=== PATIENT | male | born 1970 | race Caucasian/White ===

== ENCOUNTER → 2023-07-28 | Outpatient (CLI) | payer BC ==
--- NOTE | 2023-07-30 17:05 | MR ---
EXAMINATION TYPE: MR pancreas wo/w con DATE OF EXAM: 07/28/2023 8:06 AM CLINICAL INDICATION:Male, 53 years old with history of K86.9 pancreatic lesion; PHH, Chronic abdomen pain, abn imaging COMPARISON: None TECHNIQUE: Multiplanar multi-sequence imaging was performed without contrast. Post contrast imaging was performed. Post IV contrast subtraction images were also submitted for review. IV Contrast: 7.5 cc Gadobutrol FINDINGS: LOWER CHEST: No gross irregularity. ABDOMEN Liver: No evidence for hepatic steatosis or cirrhosis. Signal dropout on chemical shift in phase imag ing. Gallbladder and Bile ducts: No evidence for ductal dilation, or biliary stricture or evidence of chol edocholithiasis. The gallbladder is within normal limits. Pancreas: No ductal dilation. No evidence for solid mass. Spleen: Normal for size. Signal dropout on chemical shift in phase imaging. Adrenal glands: Unremarkable. Kidneys: No evidence for obstructive uropathy. No suspicious renal masses. Stomach and Bowel: No evidence for bowel wall thickening or evidence for obstruction. Retroperitoneum/Peritoneum: No evidence of pneumoperitoneum or free fluid. Vasculature: No aortic aneurysm. Musculoskeletal: The osseous structures appear intact. Lymph Nodes: No gross evidence for lymphadenopathy. Abdominal wall: Unremarkable. IMPRESSION: 1. No pancreatic lesion identified. No cystic structures dilated duct or solid mass visualized. If p riors at outside institution made available a comparison can be made with addendum enhancing the clin ical question. 2. Evidence of iron deposition within the liver and spleen.
== END | disposition home or self-care (01) ==
LOC: RADMRIMAIN 06:59
PROVIDERS: ATTEND Family Medicine
DX: K86.9 Disease of pancreas, unspecified (principal); R10.9 Unspecified abdominal pain; R93.5 Abnormal findings on diagnostic imaging of other abdominal regions, including retroperitoneum
CPT/HCPCS: 74183; A9585

== ENCOUNTER → 2023-08-07 | Outpatient (CLI) | payer BC ==
[2023-08-07 15:19] LABS: % Iron Saturation 37.35 (15.00-50.00); ALT 26 U/L (10-49); AST 22 U/L (14-35); Albumin 4.4 g/dL (3.8-4.9); Alkaline Phosphatase 54 U/L (41-126); BUN/Creat Ratio 13.78 Ratio (12.00-20.00); Blood Urea Nitrogen 12.4 mg/dL (9.0-27.0); Calcium 9.6 mg/dL (8.7-10.3); Carbon Dioxide 24.1 mmol/L (21.6-31.8); Chloride 102 mmol/L (96-109); Glucose 117 mg/dL (70-110); Iron 124 UG/DL (65-175); Potassium 4.5 mmol/L (3.5-5.5); Sodium 138 mmol/L (135-145); Total Bilirubin 0.5 mg/dL (0.3-1.2); Total Iron Binding Capacity 332 UG/DL (228-460); Total Protein 6.4 g/dL (6.2-8.2)
== END | disposition home or self-care (01) ==
LOC: LABWHC1 09:00
PROVIDERS: ATTEND Nurse Practitioner Family
DX: R93.89 Abnormal findings on diagnostic imaging of other specified body structures (principal); F10.10 Alcohol abuse, uncomplicated
CPT/HCPCS: 36415; 80053; 81256; 81596; 82728; 83540; 83550

== ENCOUNTER → 2023-08-27 | Outpatient (CLI) | payer BC ==
--- NOTE | 2023-08-27 12:42 | FL ---
EXAMINATION TYPE: FL UGI air w small bowel DATE OF EXAM: 08/27/2023 COMPARISON: NONE HISTORY: 53-year-old male R10.9 UNSPECIFIED ABDOMINAL PAIN. Fluctuating weight. TECHNIQUE: A double contrast UGI study is performed with small bowel follow through. A total of 2 m inutes 43 seconds of fluoroscopic time was utilized during procedure and 133 images obtained. Total dose area product (DAP) in uGy*m?, mGy*cm? (or similar): 125. FINDINGS: [employer] image of the abdomen shows no gross abnormality. There is scattered moderate stool t hroughout the colon. The patient swallowed oral contrast without difficulty or delay. The thoracic esophagus shows normal course, caliber, and motility. No mucosal lesion or abnormal filling defect is encountered. There is a small sliding hiatal hernia with moderate reflux during Valsalva and turning maneuver. The stomach shows normal distensibility and peristalsis. There is mild fold thickening at the distal gastric body and antrum. No evidence of any mass or ulcer disease. The duodenal bulb and sweep are unremarkable. The small bowel study shows normal transit to the colon in 1 hour. There are normal mucosal fold pattern throughout the small bowel. There is no evidence of any strict ure or filling defect noted. The terminal ileum is unremarkable. IMPRESSION: 1. Small sliding hiatal hernia with moderate GERD. 2. Mild fold thickening at the distal gastric body and gastric antrum. Correlate for any symptoms of a mild gastritis. 3. Small bowel transit time at the faster end of the normal range. No specific abnormality otherwise seen.
== END | disposition home or self-care (01) ==
LOC: RADFLMAIN 07:59
PROVIDERS: ATTEND Internal Medicine Gastroenterology
DX: K21.9 Gastro-esophageal reflux disease without esophagitis (principal); K44.9 Diaphragmatic hernia without obstruction or gangrene
CPT/HCPCS: 74240; 74248

== ENCOUNTER → 2023-11-26 | Outpatient (CLI) | payer BC ==
--- NOTE | 2023-11-26 09:09 | XR ---
EXAMINATION TYPE: XR abdomen 2V DATE OF EXAM: 11/26/2023 COMPARISON: NONE HISTORY: Abdominal pain TECHNIQUE: One view abdominal series FINDINGS: The osseous structures are intact. The bowel gas pattern is nonspecific. Lung bases are clear. Mode rate to severe retained stool burden. Calcifications in the pelvis nonspecific but likely vascular. IMPRESSION: 1. Nonspecific abdomen. No evidence of obstruction. Correlate for constipation.
== END | disposition home or self-care (01) ==
LOC: RADXRMAIN 08:38
PROVIDERS: ATTEND Internal Medicine Gastroenterology
DX: K59.00 Constipation, unspecified (principal)
CPT/HCPCS: 74019

== ENCOUNTER → 2024-02-24 | Outpatient (CLI) | payer BC ==
--- NOTE | 2024-02-24 10:10 | CT ---
EXAMINATION TYPE: CT sinus wo con DATE OF EXAM: 02/24/2024 COMPARISON: None HISTORY: sinusitis CT DLP: [address] of the paranasal sinuses was performed in the axial and coronal planes. Bone and soft tissue settings are submitted. The paranasal sinuses demonstrate normal development. There is evidence of at least moderate chronic pansinusitis. Postoperative changes of medial maxillar y antrectomy and partial ethmoidectomy noted. The nasal septum is midline. No bony destructive changes are seen within the field of view. IMPRESSION: There is evidence of at least moderate chronic pansinusitis. Postoperative changes of medial maxillar y antrectomy and partial ethmoidectomy noted. [facility], , 02/24/2024 10:07 AM
== END | disposition home or self-care (01) ==
LOC: RADCTMAIN 09:38
PROVIDERS: ATTEND Otolaryngology
DX: J32.4 Chronic pansinusitis (principal)
CPT/HCPCS: 70486

== ENCOUNTER → 2024-05-15 | Outpatient (CLI) | payer OTHER ==
--- NOTE | 2024-05-15 12:59 | MR ---
EXAMINATION TYPE: MR cervical spine wo con DATE OF EXAM: 05/15/2024 8:55 AM COMPARISON: None. CLINICAL INDICATION: Male, 53 years old with history of M54.2 Cervicalgia, Chronic neck pain, BUE num bness, headaches, prior surgery. TECHNIQUE: Multiplanar multiecho imaging on a 3.0 Maria Antonia magnet is performed through the cervical spin e. IV Contrast: mL (None, if empty) FINDINGS: The craniovertebral junction is normal. Vertebral body alignment is normal. C7-T1: No focal disc herniation or significant disc bulge is evident. No spinal canal stenosis or n eural foraminal stenosis is present. C6-7: Disc spacers present at C6-7. No spinal canal stenosis is present. Mild foraminal narrowing is present bilaterally. C5-6: Broad-based disc bulge is present with mild anterior thecal sac compression. No cord contact is evident. No AP spinal canal stenosis evident. Neural foramen are patent.. C4-5: There is a small central protrusion with anterior thecal sac compression. No cord contact or sp inal canal stenosis. Neural foramen are patent. C3-4: Mild disc bulge is present centrally with anterior thecal sac compression. This comes in close approximation with the spinal cord. No cord contact or cord deformity is evident. No AP spinal canal stenosis. Neural foramen are patent.. C2-3: No focal disc herniation or significant disc bulge is evident. No spinal canal stenosis or terry ral foraminal stenosis is present. IMPRESSION: 1. Mild disc bulging present at C5-6, C4-5, C3-4 discussed above. No AP spinal canal stenosis or cord contact evident. [facility], , 05/15/2024 12:57 PM
== END | disposition home or self-care (01) ==
LOC: RADMRIMAIN 08:16
PROVIDERS: ATTEND Family Medicine
DX: M50.322 Other cervical disc degeneration at C5-C6 level (principal); R20.2 Paresthesia of skin
CPT/HCPCS: 72141

== ENCOUNTER 2024-08-16 12:25 | Inpatient (IN) | payer BC ==
--- NOTE | 2024-08-16 12:51 | ED ---
Psych HPI - General Chief Complaint: Psychiatric Symptoms Stated Complaint: Psych evaluation Time Seen by Provider: 08/16/24 12:32 Source: patient, RN notes reviewed Mode of arrival: ambulatory Limitations: no limitations - History of Present Illness Initial Comments: 54-year-old male presents emergency department chief complaint of depression. Patient states that worsening depression last several months states that it worsened after break-up of his fiance and now recently found out that he is losing his house. Patient states he is on multiplications he goes to counseling 3 times a week and sees a psychiatrist he has been on multiple meds are not helping. Patient denies any alcohol or drug abuse. Patient states he has multiple plans to harm himself but has not attempted in any way - Related Data Previous Rx's Medication Instructions Recorded HYDROcodone/APAP 7.5-325MG [[place] 1 tab PO Q6HR PRN 3 Days #12 tab 06/22/24 7.5-325] Allergies Allergy/AdvReac Type Severity Reaction Status Date / Time No Known Allergies Allergy Verified 08/16/24 12:38 Review of Systems ROS Statement: Those systems with pertinent positive or pertinent negative responses have been documented in the HPI. ROS Other: All systems not noted in ROS Statement are negative. Past Medical History Past Medical History: Asthma, COPD Additional Past Medical History / Comment(s): Chronic bouts of pneumonia and bronchitis, pleursy, History of Any Multi-Drug Resistant Organisms: None Reported Additional Past Surgical History / Comment(s): bilateral triple shoulder surgery (2012) bilateral knee surgeries (1999), Sinus surgery. Past Psychological History: Anxiety, Depression, PTSD Smoking Status: Current every day smoker Past Alcohol Use History: Occasional Past Drug Use History: None Reported General Exam Limitations: no limitations General appearance: alert, in no apparent distress Head exam: Present: atraumatic, normocephalic, normal inspection Eye exam: Present: normal appearance, PERRL, EOMI. Absent: scleral icterus, conjunctival injection, periorbital swelling ENT exam: Present: normal exam, normal oropharynx, mucous membranes moist Neck exam: Present: normal inspection, full ROM. Absent: tenderness, meningismus, lymphadenopathy Respiratory exam: Present: normal lung sounds bilaterally. Absent: respiratory distress, wheezes, rales, rhonchi, stridor Cardiovascular Exam: Present: regular rate, normal rhythm, normal heart sounds. Absent: systolic murmur, diastolic murmur, rubs, gallop, clicks GI/Abdominal exam: Present: soft, normal bowel sounds. Absent: distended, tenderness, guarding, rebound, rigid Neurological exam: Present: alert, oriented X3 Psychiatric exam: Present: depressed, flat affect Course Vital Signs 08/16/24 12:32 Temperature 97.8 F Pulse Rate 107 H Respiratory 18 Rate Blood Pressure 135/74 O2 Sat by Pulse 98 Oximetry Medical Decision Making - Medical Decision Making Was pt. sent in by a medical professional or institution (, PA, CLINIC PHYSICIAN DIRECTOR, urgent care, hospital, or long term...) When possible be specific @ -No Did you speak to anyone other than the patient for history (EMS, parent, family, police, friend...)? What history was obtained from this source @ -No Did you review nursing and triage notes (agree or disagree)? Why? @ -I reviewed and agree with nursing and triage notes Were old charts reviewed (outside hosp., previous admission, EMS record, old EKG, old radiological studies, urgent care reports/EKG's, long term records)? Report findings @ -No old charts were reviewed Differential Diagnosis (chest pain, altered mental status, abdominal pain women, abdominal pain men, vaginal bleeding, weakness, fever, dyspnea, syncope, headache, dizziness, GI bleed, back pain, seizure, CVA, palpatations, mental health, musculoskeletal)? @ -Differential Mental Health Depression, anxiety, bipolar, psychosis, schizophrenia, borderline personality, situational depression, adjustment disorder, behavioral disorder, brain tumor, m alingering, substance abuse, encephalopathy, medication reaction, dementia, hypothyroidism, degenerative neurologic disorder, lupus.... This is not meant to be all-inclusive list EKG interpreted by me (3pts min.). @ -None X-rays interpreted by me (1pt min.). @ -None done CT interpreted by me (1pt min.). @ -None done U/S interpreted by me (1pt. min.). @ -None done What testing was considered but not performed or refused? (CT, X-rays, U/S, labs)? Why? @ -None What meds were considered but not given or refused? Why? @ -None Did you discuss the management of the patient with other professionals (p rofessionals i.e. , PA, CLINIC PHYSICIAN DIRECTOR, lab, RT, psych nurse, social studies teacher, mortgage collector, teacher, motorized squad commanding officer, upper caser)? Give summary @ -EPS evaluated the patient recommended inpatient treatment. Was smoking cessation discussed for >3mins.? @ -No Was critical care preformed (if so, how long)? @ -No Were there social determinants of health that impacted care today? How? (Homelessness, low income, unemployed, alcoholism, drug addiction, transportation, low edu. Level, literacy, decrease access to med. care, group home, rehab)? @ -No Was there de-escalation of care discussed even if they declined (Discuss DNR or withdrawal of care, Hospice)? DNR status @ -No What co-morbidities impacted this encounter? (DM, HTN, Smoking, COPD, CAD, Cancer, CVA, ARF, Chemo, Hep., AIDS, mental health diagnosis, sleep apnea, morbid obesity)? @ -None Was patient admitted / discharged? Hospital course, mention meds given and route, prescriptions, significant lab abnormalities, going to OR and other pertinent info. @ -Admit to [facility]. for psychiatric treatment Undiagnosed new problem with uncertain prognosis? @ -No Drug Therapy requiring intensive monitoring for toxicity (Heparin, Nitro, Insulin, Cardizem)? @ -No Were any procedures done? @ -No Diagnosis/symptom? @ -Depression, suicidal ideation Acute, or Chronic, or Acute on Chronic? @ -Acute Uncomplicated (without systemic symptoms) or Complicated (systemic symptoms)? @ -Complicated Side effects of treatment? @ -No Exacerbation, Progression, or Severe Exacerbation? @ -No Poses a threat to life or bodily function? How? (Chest pain, USA, [place], pneumonia, PE, COPD, DKA, ARF, appy, cholecystitis, CVA, Diverticulitis, Homicidal, Suicidal, threat to staff... and all critical care pts) @ -Yes suicidal - Lab Data Lab Results 08/16/24 08/16/24 Range/Units 13:00 13:42 Urine Opiates Screen Not Detected (NotDetected) Ur Oxycodone Screen Not Detected (NotDetected) Urine Methadone Screen Not Detected (NotDetected) Ur Barbiturates Screen Not Detected (NotDetected) U Tricyclic Antidepress Not Detected (NotDetected) Ur Phencyclidine Scrn Not Detected (NotDetected) Ur Amphetamines Screen Not Detected (NotDetected) U Methamphetamines Scrn Not Detected (NotDetected) U Benzodiazepines Scrn Not Detected (NotDetected) Urine Cocaine Screen Not Detected (NotDetected) U Marijuana (THC) Screen Not Detected (NotDetected) SARS-CoV-2 (PCR) Not Detected (Not Detectd) Disposition Clinical Impression: Suicidal ideation, Depression Disposition: TRANSFER TO PSYCH HOSP/UNIT Referrals: Josiah Tracy MD [Primary Care Provider] - 1-2 days Time of Disposition: 14:53
[2024-08-16 14:19] LABS: Amphetamine Screen,Urine Not Detected (NotDetected); Barbiturate Screen,Urine Not Detected (NotDetected); Benzodiazepines Screen,Urine Not Detected (NotDetected); Cocaine Screen,Urine Not Detected (NotDetected); Methadone Screen, Urine Not Detected (NotDetected); Opiate Screen,Urine Not Detected (NotDetected); Oxycodone Screen, Urine Not Detected (NotDetected); Phencyclidine Screen,Urine Not Detected (NotDetected); Tricyclic Antidepressant,Urine Not Detected (NotDetected); Urn Cannabinoid Scrn Not Detected (NotDetected)
[2024-08-16] MEDS ORDERED: LORazepam 2 MG/ML INJ IM PRN (16:50)
[2024-08-16] MEDS ORDERED: MAGNESIUM HYDROXIDE 2,400 MG/30 ML CUP PO PRN (16:50)
[2024-08-16] MEDS ORDERED: HALOPERIDOL LACTATE 5 MG/ML 1 ML VIAL IM PRN (16:50)
[2024-08-16] MEDS ORDERED: ACETAMINOPHEN TAB 325 MG TAB PO PRN (16:50)
[2024-08-16 17:12] LABS: Appearance,Urine Clear (Clear); Bilirubin,Urine Negative (Negative); Blood,Urine Negative (Negative); Color,Urine Colorless; Glucose,Urine (UA) Negative (Negative); Ketones,Urine Negative (Negative); Leukocyte Esterase,Urine Negative (Negative); Nitrite,Urine Negative (Negative); Protein,Urine Negative (Negative); Specific Gravity,Urine 1.005 (1.001-1.035); Urobilinogen,Urine <2.0 mg/dL (<2.0)
[2024-08-16] MEDS: IBUPROFEN 600 MG TAB PO PRN (18:19)
--- NOTE | 2024-08-17 07:53 | P.HPIM ---
History of Present Illness H&P Date: 08/17/24 Chief Complaint: Significant depression The patient is a 54-year-old white male who is in the mental health unit related to significant impression he was supposed to see me yesterday and has struggled with depression. He recently broke up with his fiance and has had financial difficulties. Suicidal ideation and severe depression is noted. He has been relatively compliant with medication. No significant new complaints otherwise. No asthma COPD noted. Review of Systems Constitutional: Denies chills, Denies fever Eyes: denies blurred vision, denies pain Ears, nose, mouth and throat: Denies headache, Denies sore throat Cardiovascular: Denies chest pain, Denies shortness of breath Respiratory: Denies cough Past Medical History Past Medical History: Asthma, COPD Additional Past Medical History / Comment(s): Chronic bouts of pneumonia and bronchitis, pleurisy History of Any Multi-Drug Resistant Organisms: None Reported Additional Past Surgical History / Comment(s): bilateral triple shoulder surgery (2012) bilateral knee surgeries (1999), Sinus surgery. Past Anesthesia/Blood Transfusion Reactions: No Reported Reaction Past Psychological History: Anxiety, Depression, PTSD Smoking Status: Current every day smoker Past Alcohol Use History: None Reported Past Drug Use History: None Reported Medications and Allergies Home Medications Medication Instructions Recorded Confirmed Type Cariprazine HCl [Vraylar] 1.5 mg PO DAILY 08/16/24 08/16/24 History Fluticasone/Vilanterol [Breo 1 puff INHALATION RT-DAILY 08/16/24 08/16/24 History Ellipta 100-25 Mcg Inhalr] Melatonin 10mg Gummy 20 mg PO HS 08/16/24 08/16/24 History Sertraline [Zoloft] 100 mg PO DAILY 08/16/24 08/16/24 History Zolpidem Tartrate [Ambien] 5 mg PO HS 08/16/24 08/16/24 History buPROPion HCL [Wellbutrin XL] 150 mg PO DAILY 08/16/24 08/16/24 History methylPREDNISolone [Medrol Dose See Taper PO DIRECTED 08/16/24 08/16/24 History Pack] Allergies Allergy/AdvReac Type Severity Reaction Status Date / Time No Known Allergies Allergy Verified 08/16/24 14:56 Physical Exam Vitals: Vital Signs Temp Pulse Pulse Resp BP BP Pulse Ox 08/16/24 17:50 98 F 93 16 113/75 98 08/16/24 12:32 97.8 F 107 H 18 135/74 98 Intake and Output 08/16/24 08/17/24 08/17/24 22:59 06:59 14:59 Other: Weight 65.431 kg - Constitutional General appearance: no acute distress - EENT Eyes: EOMI - Neck Neck: no lymphadenopathy - Respiratory Respiratory: bilateral: diminished - Cardiovascular Rhythm: regular Heart sounds: normal: S1, S2 Abnormal Heart Sounds: no S3 Gallop - Gastrointestinal General gastrointestinal: soft, no tenderness - Neurologic Neurologic: CNII-XII intact Thrombosis Risk Factor Assmnt - Choose All That Apply Any of the Below Risk Factors Present?: Yes Each Factor Represents 1 point: Age 41-60 years Other Risk Factors: No Other congenital or acquired thrombophilia - If yes, enter type in comment: No Thrombosis Risk Factor Assessment Total Risk Factor Score: 1 Thrombosis Risk Factor Assessment Level: Low Risk Assessment and Plan (1) Suicidal ideation Current Visit: Yes Status: Acute Code(s): R45.851 - SUICIDAL IDEATIONS SNOMED Code(s): 6922677 (2) Depression Current Visit: Yes Status: Acute Code(s): F32.A - DEPRESSION, UNSPECIFIED SNOMED Code(s): 37223752 Plan: Severe depression with suicidal ideation. Financial difficulties. Element of asthma and COPD. Reconcile medications as necessary unrelated to psychiatry. Will continue to follow from medical perspective. Time with Patient: Less than 30
[2024-08-17] MEDS: SYMBICORT 80-4.5 MCG INHALER INHALATION SCH (09:24)
[2024-08-17] MEDS: LORazepam 1 MG TAB PO PRN (09:24)
[2024-08-17] MEDS: NICOTINE 14MG/24HR PATCH TRANSDERM SCH (09:24)
[2024-08-17] MEDS: SERTRALINE 100 MG TAB PO SCH (10:57)
[2024-08-17 12:25] LABS: Eosinophils # (A) 0.22 10*3/uL (0.04-0.35); Eosinophils % (A) 2.2 %; HCT 45.8 % (39.6-50.0); HGB 14.9 g/dL (13.0-17.0); Lymphocytes # (A) 2.71 10*3/uL (0.90-5.00); Lymphocytes % (A) 26.6 %; MCH 27.3 pg (27.0-32.0); MCHC 32.5 g/dL (32.0-37.0); Mean Platelet Volume 10.1 fL (9.5-12.2); Monocytes # (A) 0.75 10*3/uL (0.20-1.00); Monocytes % (A) 7.4 %; Neutrophils # (A) 6.36 10*3/uL (1.80-7.70); Neutrophils % (A) 62.5 %; Platelet Count 382 10*3/uL (140-440); RBC 5.45 10*6/uL (4.40-5.60); RDW 15.7 % (11.5-14.5); WBC 10.17 10*3/uL (4.50-10.00)
--- NOTE | 2024-08-17 12:35 | P.HP ---
Psychiatric H&P - . H&P Date: 08/17/24 History & Physical: Allergies Allergy/AdvReac Type Severity Reaction Status Date / Time No Known Allergies Allergy Verified 08/16/24 14:56 Vital Signs Temp 98.2 F 08/17/24 09:00 Pulse 109 H 08/17/24 09:00 Resp 16 08/16/24 17:50 BP 126/78 08/17/24 09:00 Pulse Ox 98 08/17/24 09:00 FiO2 Intake & Output 08/16/24 08/17/24 08/17/24 18:59 06:59 18:59 Weight 65.431 kg Laboratory Last Values Urine Color Colorless 08/16/24 13:42 Urine Appearance Clear (Clear) 08/16/24 13:42 Urine pH 7.0 (5.0-8.0) 08/16/24 13:42 Ur Specific [place] 1.005 (1.001-1.035) 08/16/24 13:42 Urine Protein Negative (Negative) 08/16/24 13:42 Urine Glucose (UA) Negative (Negative) 08/16/24 13:42 Urine Ketones Negative (Negative) 08/16/24 13:42 Urine Blood Negative (Negative) 08/16/24 13:42 Urine Nitrite Negative (Negative) 08/16/24 13:42 Urine Bilirubin Negative (Negative) 08/16/24 13:42 Urine Urobilinogen <2.0 mg/dL (<2.0) 08/16/24 13:42 Ur Leukocyte Esterase Negative (Negative) 08/16/24 13:42 Urine Opiates Screen Not Detected (NotDetected) 08/16/24 13:42 Ur Oxycodone Screen Not Detected (NotDetected) 08/16/24 13:42 Urine Methadone Screen Not Detected (NotDetected) 08/16/24 13:42 Ur Barbiturates Screen Not Detected (NotDetected) 08/16/24 13:42 U Tricyclic Antidepress Not Detected (NotDetected) 08/16/24 13:42 Ur Phencyclidine Scrn Not Detected (NotDetected) 08/16/24 13:42 Ur Amphetamines Screen Not Detected (NotDetected) 08/16/24 13:42 U Methamphetamines Scrn Not Detected (NotDetected) 08/16/24 13:42 U Benzodiazepines Scrn Not Detected (NotDetected) 08/16/24 13:42 Urine Cocaine Screen Not Detected (NotDetected) 08/16/24 13:42 U Marijuana (THC) Screen Not Detected (NotDetected) 08/16/24 13:42 SARS-CoV-2 (PCR) Not Detected (Not Detectd) 08/16/24 13:00 08/17/24 12:21 IDENTIFYING DATA: Patient is a 54-year-old male, employed and living independently CHIEF COMPLAINT: Depression, SI HPI: Patient presented to the hospital with depression. Per EPS, "pt presents with blunted affect and makes minimal eye contact throughout assessment. pt reports that he is at the hospital for "Depression" and "Thoughts. Only though ts." pt does elaborate that these thoughts are suicidal and that they are "only thoughts because I promised people that I won't do anything until it gets to that point." pt states that he told his counselors and psychiatrist that he would not attempt suicide "until it gets bad enough and I can't take it anymore." pt reports SI, but denies having a plan. However, pt states that he had had thoughts such as "fuck it" while riding his motorcycle yesterday and also discussed that he has numerous guns in the home that he has thought about. pt reports that his "brain won't shut off" and that it has been causing issues with everyday life. pt states, "I feel like a complete and utter waste of space." pt reports that he has not been sleeping or eating lately and has lost about 25 pounds over the past month. 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 pt denies HI. pt reports that he has begun hearing voices that are telling him to kill himself. pt denies having experienced hallucinations in the past. No delusional thoughts verbalized. pt cooperative with assessment." Patient seen and evaluated on the unit and was agreeable with speaking to ticket writer in office. He reports several psychosocial stressors that are contributing to his ongoing symptoms of depression. He states his fiance of 3-1/2 years broke up with him roughly 1.5 months ago and has since moved on with her 2 daughters. He also reports financial stressors including losing his home and having difficulties with functioning at work. He mentions seeing a psychiatrist at [facility] and recently added Wellbutrin and Vraylar as he had been on Zoloft for 3 years. He reports sleep difficulties, poor appetite with a 30 pound weight loss, low energy, poor concentration, hopelessness. 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 He reports anxiety that appears generalized in nature in addition to racing thoughts, feeling on edge. He reports some questionable auditory hallucinations described as "evil" however he is unable to recognize if this is his own thoughts or other. He does report suicidal ideations however did note that they are more passive in nature, no plan or intent while in the hospital however he did divulge in several plans prior to arrival including using a noose or nail gun as his firearms have been removed from his home reportedly. Patient denies any homicidal ideations intent or plan. At this time patient denies any visual hallucinations. Patient denies any flight of ideas racing thoughts and increased in goal directed behavior. Patient admits to using cigarettes, smoking 1/2 pack/day, denying any other substances but does report a history of hallucinogens, THC and alcohol. PAST PSYCHIATRIC HISTORY: Patient has a history of PTSD, depression, anxiety. He is currently prescribed Zoloft 100 mg daily for 3 years and recently prescribed Wellbutrin XL 150 mg daily, Vraylar 1.5 mg daily. He reports 1 previous inpatient hospitalization back in 2017. Follows with [facility] and sees a therapist regularly. He reports 1 remote suicide attempt at age 15. PMH: as per ER note ALLERGIES: as per EMR SUBSTANCE USE HISTORY: As per HPI FAMILY PSYCHIATRIC/SUBSTANCE USE HISTORY: He states his daughter does suffer from some form of mental illness and that all of his children abuse substances of some kind, his father abused alcohol. SOCIAL HISTORY: Patient is single and has 4 kids however he lives independently. He completed some college and is employed. MENTAL STATUS EXAM: General Appearance: Patient appears to be stated age is alert, directable, and attempts to cooperate. Patient appears to have fair hygiene and grooming. He is thin. Behavior: Patient is seated without any agitated behavior. Speech: Patient's speech is fluent and nonpressured. Mood/Affect: Patient reports their mood is depressed, affect is congruent and constricted. Suicidality/Homicidality: Patient denies having any homicidal ideation intent or plan. He reports suicidal ideations, more passive in nature Perceptions: Patient denies any visual hallucinations and he reports some questionable auditory hallucinations, did not appear internally preoccupied Though content/process: There is no evidence of any delusional thought content and thought process is linear and goal-directed. Memory and concentration: AOX3, grossly intact for the purposes of this session. Can spell "WORLD" backwards Judgment and insight: Fair STRENGTHS/WEAKNESSES: strength is that patient is resilient. Weakness is that patient has poor judgment, limited support and is impulsive INTELLECT: Average IMPRESSIONS: Major depressive disorder, recurrent, moderate PTSD Generalized anxiety disorder Nicotine dependence Alcohol use disorder, in remission PLAN: -Patient is admitted under voluntary status to [facility] for stabilization of psychiatric symptoms and safety. Patient has signed adult voluntary form and and is placed in patient's chart. -Medications : Increase Zoloft to 150 mg daily for depression/PTSD/anxiety, start Remeron 7.5 mg at bedtime for sleep/mood/appetite - Ativan and Haldol PRN for agitation/aggression -Patient was counselled on substance abuse and desired to cut back on use -Patient was informed of the risks, benefits and side effects of the medication and patient verbally consented to taking the medications. Patient signed med consent form and was placed in chart. Patient offered and accepted patient education sheet for psychotropic medications. -Internal Medicine consult to perform medical evaluation and physical. -NRT -nicotine patch -SW on board for discharge planning. Encourage patient to participate in groups to work on coping skills.
[2024-08-17 12:48] LABS: ALT 18 U/L (4-49); AST 20 U/L (17-59); African American GFR (CKD) >90 (>60 ml/min/1.73 sqM); Albumin 4.5 g/dL (3.5-5.0); Alkaline Phosphatase 64 U/L (38-126); Anion Gap 7 mmol/L; Blood Urea Nitrogen 14 mg/dL (9-20); Calcium 9.9 mg/dL (8.4-10.2); Carbon Dioxide 30 mmol/L (22-30); Chloride 100 mmol/L (98-107); Glucose 86 mg/dL (74-99); Non-African American GFR(CKD) >90 (>60 ml/min/1.73 sqM); Potassium 4.7 mmol/L (3.5-5.1); Sodium 137 mmol/L (137-145); Total Bilirubin 0.5 mg/dL (0.2-1.3); Total Protein 7.2 g/dL (6.3-8.2)
[2024-08-17 14:25] VITALS: BMI 20.7
[2024-08-17 15:16] LABS: Chol/HDL Ratio 3.62 Ratio; LDL Cholesterol,Calculated 143.7 mg/dL (0.0-131.0)
[2024-08-17] MEDS: MIRTAZAPINE 15 MG TAB PO SCH (21:16)
[2024-08-18] MEDS: DIVALPROEX 250 MG TABLET.DR PO SCH (12:31)
--- NOTE | 2024-08-18 12:38 | P.PN ---
Progress Note - Text Progress Note Date: 08/18/24 Interval History: Patient was seen wandering the hallways and was directable and agreeable to allyson shelby with communications writer in the office. Patient apologized for comments he made yesterday regarding his ex to which this was excepted. Patient reports sleeping well, specifically "the best sleep has had in a while" in addition to an increase in appetite which she is happy about given the recent 50 pound weight loss. He states his racing thoughts have improved and that his ex is planning on visiting him tonight. He mentions wanting to rekindle things with her and patient was encouraged to express these feelings to her. He has been attending groups. He does report a history of mood instability, easily frustrated. He reports experiencing some suicidal thoughts this morning, passive in nature however does mention them to be lessening in intensity. At this time patient denies any homicidal ideations, intent or plan. Patient denies any auditory, visual hallucinations and denies any paranoia or delusions. Patient denies any side effects from the medications and has been compliant with meds. Mental Status Exam: General Appearance: Patient appears to be stated age is alert, directable, and cooperative. Behavior: Patient is calmly seated without any agitated behavior. Speech: Patient's speech is fluent and nonpressured. Mood/Affect: Mood is improving mildly, affect is congruent and reactive. Suicidality/Homicidality: Patient denies having any homicidal ideation intent or plan. Patient reports suicidal ideations, passive in nature, lessening in intensity Perceptions: Patient denies any visual hallucinations and denies any auditory hallucinations Though content/process: There is no evidence of any delusional thought content and thought process is linear and goal-directed. Memory and concentration: AOX3, grossly intact for the purposes of this session Judgment and insight: Improving mildly Assessment Bipolar 2 disorder, current episode depressed PTSD Generalized anxiety disorder Nicotine dependence Alcohol use disorder, in remission Plan: -Patient continues to meet criteria for inpatient psychiatric admission for symptom stabilization and safety. Patient has signed adult voluntary form and medication consent and was placed in patient's chart. -Medications: Continue Zoloft 150 mg daily for depression/PTSD/anxiety, Remeron 7.5 mg at bedtime for sleep/mood/appetite, start Depakote 250 mg twice daily for mood stabilization -When necessary Ativan and Haldol for agitation/aggression. -Labs: Lipid panel mildly elevated, will encourage dietary and lifestyle modifications and will defer to PCP for further recommendations/treatment -NRT - nicotine patch -SW on board for discharge planning. Encouraged the patient to participate in milieu. Anticipate discharge back home on Friday pending stabilization in suicidal thoughts
[2024-08-18] MEDS: MAG HYDROX/AL HYDROX/SIMETH 355 ML BOTTLE PO PRN (21:22)
--- NOTE | 2024-08-19 12:15 | P.PN ---
Progress Note - Text Progress Note Date: 08/19/24 Interval History: Patient was seen wandering the hallways and was directable and agreeable to sp heron with publications writer in the office. He mentions feeling well today, stating that his racing thoughts have improved and that he is sleeping well. He did mention getting upset earlier with one of his peers however he states he later apologized to staff for his outburst. He states his ex visited him last night and that he is hopeful that the will rekindle, he is interested in couples counseling to work through their issues. He states his tinnitus that he normally has at baseline is also improved. He was goal oriented. At this time patient denies any suicidal or homicidal ideations, intent or plan. Patient denies any auditory, visual hallucinations and denies any paranoia or delusions. Patient denies any side effects from the medications and has been compliant with meds. Mental Status Exam: General Appearance: Patient appears to be stated age is alert, directable, and cooperative. Wears glasses Behavior: Patient is calmly seated without any agitated behavior. Speech: Patient's speech is fluent and nonpressured. Mood/Affect: Mood is improving mildly, affect is congruent and full range, reactive. Suicidality/Homicidality: Patient denies having any suicidal or homicidal ideation intent or plan. Perceptions: Patient denies any visual hallucinations and denies any auditory hallucinations Though content/process: There is no evidence of any delusional thought content and thought process is linear and goal-directed. Memory and concentration: AOX3, grossly intact for the purposes of this session Judgment and insight: Improving mildly Assessment Bipolar 2 disorder, current episode depressed PTSD Generalized anxiety disorder Nicotine dependence Alcohol use disorder, in remission Plan: -Patient continues to meet criteria for inpatient psychiatric admission for symptom stabilization and safety. Patient has signed adult voluntary form and medication consent and was placed in patient's chart. -Medications: Continue Zoloft 150 mg daily for depression/PTSD/anxiety, Remeron 7.5 mg at bedtime for sleep/mood/appetite, Depakote 250 mg twice daily for mood stabilization -When necessary Ativan and Haldol for agitation/aggression. -Labs: Reviewed, Depakote level ordered for tomorrow morning -NRT - nicotine patch -SW on board for discharge planning. Encouraged the patient to participate in milieu. Anticipate discharge back home tomorrow
[2024-08-19] MEDS: haloperidoL 5 MG TAB PO PRN (13:35)
[2024-08-19 23:34] VITALS: RESP 17
[2024-08-20 08:37] VITALS: BP 132/84; PULSE 99; TEMP 97.6
--- NOTE | 2024-08-20 11:44 | P.DS ---
Providers Date of admission: 08/16/24 16:40 Expected date of discharge: 08/20/24 Attending physician: Naz Sanford MD Consults: 08/16/24 16:50 Consult Physician Routine Consulting Provider: Josiah Tracy Consult Reason/Comments: H&P and medical Do you want consulting provider notified?: Yes Primary care physician: Josiah Tracy - Discharge Diagnosis(es) (1) Bipolar 2 disorder Status: Acute Priority: High (2) PTSD (post-traumatic stress disorder) Status: Acute Priority: Medium (3) Generalized anxiety disorder Status: Acute Priority: Medium (4) Nicotine dependence Status: Acute Priority: Low (5) Alcohol use disorder in remission Status: Chronic Priority: Low Hospital Course: Admission HPI: Admission note was completed by insurance writer "Patient presented to the hospital with depression. Per EPS, "pt presents with blunted affect and makes minimal eye contact throughout assessment. pt reports that he is at the hospital for "Depression" and "Thoughts. Only thoughts." pt does elaborate that these thoughts are suicidal and that they are "only thoughts because I promised people that I won't do anything until it gets to that point." pt states that he told his counselors and psychiatrist that he would not attempt suicide "until it gets bad enough and I can't take it anymore." pt reports SI, but denies having a plan. However, pt states that he had had thoughts such as "fuck it" while riding his motorcycle yesterday and also discussed that he has numerous guns in the home that he has thought about. pt reports that his "brain won't shut off" and that it has been causing issues with everyday life. pt states, "I feel like a complete and utter waste of space." pt reports that he has not been sleeping or eating lately and has lost about 25 pounds over the past month. 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 pt denies HI. pt reports that he has begun hearing voices that are telling him to kill himself. pt denies having experienced hallucinations in the past. No delusional thoughts verbalized. pt cooperative with assessment." Patient seen and evaluated on the unit and was agreeable with speaking to insurance writer in office. He reports several psychosocial stressors that are contributing to his ongoing symptoms of depression. He states his fiance of 3-1/2 years broke up with him roughly 1.5 months ago and has since moved on with her 2 daughters. He also reports financial stressors including losing his home and having difficulties with functioning at work. He mentions seeing a psychiatrist at [facility] and recently added Wellbutrin and Vraylar as he had been on Zoloft for 3 years. He reports sleep difficulties, poor appetite with a 30 pound weight loss, low energy, poor concentration, hopelessness. 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 He reports anxiety that appears generalized in nature in addition to racing thoughts, feeling on edge. He reports some questionable auditory hallucinations described as "evil" however he is unable to recognize if this is his own thoughts or other. He does report suicidal ideations however did note that they are more passive in nature, no plan or intent while in the hospital however he did divulge in several plans prior to arrival including using a noose or nail gun as his firearms have been removed from his home reportedly. Patient denies any homicidal ideations intent or plan. At this time patient denies any visual hallucinations. Patient denies any flight of ideas racing thoughts and increased in goal directed behavior. Patient admits to using cigarettes, smoking 1/2 pack/day, denying any other sub stances but does report a history of hallucinogens, THC and alcohol." Hospital course: Upon admission to the unit patient was directable and agreeable to commence treatment and signed adult voluntary form.. Patient got along well with other patients on the unit and followed unit protocol. Patient was compliant with the medications and denied any side effects throughout hospital course. Patient was started on Zoloft and this was increased to 150 mg daily for depression/PTSD/anxiety, Remeron 7.5 mg at bedtime for sleep/mood/appetite, Depakote 250 mg twice daily for mood stabilization. Depakote level was drawn on the day of discharge and is currently pending. Patient spoke of his stressors and engaged in therapy both group and individual. Patient was also seen by medical team for history and physical exam. Throughout the course of the hospitalization patient gradually improved with regards to mood, anxiety, sleep and became more future oriented with improved insight and judgment. On the day of discharge patient denied any suicidal or homicidal ideations intent or plan denied any auditory or visual hallucinations. The patient denied any access to guns or weapons. Patient denied any paranoia and did not endorse any delusions. Patient does have a significant history of substance abuse and was counseled on abstaining from all substances including alcohol and marijuana. Patient was also counseled on the medications and need for regular compliance and was encouraged to follow-up with their outpatient appointment for mental health and also for primary care. Prior to discharge a family meeting will be arranged by social service assistant to answer any questions and ensure safety upon discharge including making sure that guns/weapons are either removed from the home or locked away. Patient to be discharged back home and will follow-up with [facility]. Mental status exam: General Appearance: Patient appears to be stated age is alert, pleasant, and cooperative. Patient is in no acute distress and has fair hygiene and grooming. He is wearing glasses Behavior: Patient is calmly seated without any agitated behavior. Speech: Patient's speech is fluent and nonpressured. Mood/Affect: Patient reports their mood is "better", affect is congruent and bright, reactive Suicidality/Homicidality: Patient denies having any suicidal or homicidal ideation intent or plan. Perceptions: Patient denies any auditory or visual hallucinations. Though content/process: There is no evidence of any delusional thought content and thought process is linear and goal-directed. More future oriented Memory and concentration: AOX3, grossly intact for the purposes of this session. Can spell "WORLD" backwards correctly. Judgment and insight: Good Impression: Bipolar 2 disorder, current episode depressed PTSD Generalized anxiety disorder Nicotine dependence Alcohol use disorder, in remission Plan: -Continue with discharge today as patient has improved and stabilized psychiatrically and is not currently an imminent threat to themself and/or others. -Continue medications: Zoloft 150 mg daily, Remeron 7.5 mg at bedtime, Depakote 250 mg twice daily -Patient was counseled on the need for medication compliance and appropriate follow-up at mental health and also primary care for medical issues. Patient verbalized understanding and agreed. -Social work to help coordinate patients discharge today arrange for and conduct family meeting to ensure safety upon discharge and answer any questions/concerns. also to ensure safe home environment that guns/weapons are either removed from the home or locked away. Social work also to arrange for patients follow up appointments with [facility] for psychiatric care along with follow up with primary care provider. -Patient counseled on abstaining from recreational drugs and marijuana and alcohol. Was informed/educated on the adverse effects on their physical and mental health. Patient verbally agreed and understood. -Patient was instructed to return to the hospital or seek immediate medical care if their psychiatric or medical symptoms do worsen or reoccur. Abnormal Labs 08/17/24 08/17/24 11:36 11:36 WBC 10.17 H Cholesterol 229.00 H LDL Cholesterol, Calc 143.7 H HDL Cholesterol 63.30 H Allergies Allergy/AdvReac Type Severity Reaction Status Date / Time No Known Allergies Allergy Verified 08/16/24 14:56 Vital Signs Temp 97.6 F 08/20/24 08:36 Pulse 99 08/20/24 08:36 Resp 17 08/19/24 21:00 BP 132/84 08/20/24 08:36 Pulse Ox 99 08/20/24 08:36 FiO2 Patient Condition at Discharge: Stable Plan - Discharge Summary Discharge Rx Participant: No New Discharge Prescriptions: New Divalproex [Depakote] 250 mg PO BID 30 Days #60 tab Sertraline [Zoloft] 150 mg PO DAILY 30 Days #45 tab Nicotine 14Mg/24Hr Patch [Habitrol] 1 patch TRANSDERM DAILY patch Mirtazapine [Remeron] 7.5 mg PO HS 30 Days #15 tab Discontinued Sertraline [Zoloft] 100 mg PO DAILY buPROPion HCL [Wellbutrin XL] 150 mg PO DAILY Cariprazine HCl [Vraylar] 1.5 mg PO DAILY Zolpidem Tartrate [Ambien] 5 mg PO HS methylPREDNISolone [Medrol Dose Pack] See Taper PO DIRECTED Fluticasone/Vilanterol [Breo Ellipta 100-25 Mcg Inhalr] 1 puff INHALATION RT- DAILY Melatonin 10mg Gummy 20 mg PO HS Discharge Medication List Divalproex [Depakote] 250 mg PO BID 30 Days #60 tab 04/18/25 [Rx] Mirtazapine [Remeron] 7.5 mg PO HS 30 Days #15 tab 08/20/24 [Rx] Nicotine 14Mg/24Hr Patch [Habitrol] 1 patch TRANSDERM DAILY patch 08/20/24 [Rx] Sertraline [Zoloft] 150 mg PO DAILY 30 Days #45 tab 08/20/24 [Rx] Follow up Appointment(s)/Referral(s): Psychiatry, [facility] [Other] - 08/23/24 11:30 am (Jorge L Cervantes ) Josiah Tracy MD [Primary Care Provider] - 1-2 days Patient Instructions/Handouts: How to Stop Smoking (DC), Depression (DC) Activity/Diet/Wound Care/Special Instructions: [facility] Discharge Info Avoid the use of street drugs and alcohol. Take all medications as prescribed. When you are in need of refills on your medications, please contact your outpatient medical provider and/or outpatient psychiatrist. Please go to your scheduled outpatient appointments for aftercare treatment. If symptoms return or become worse, call the crisis line at or and/or visit the nearest emergency room for assistance. National Suicide and Crisis Lifeline - call or text 551 Discharge Disposition: HOME SELF-CARE
== END 2024-08-20 09:50 | disposition home or self-care (01) | DRG 885 ==
LOC: EC 12:25 → 3MHU 16:40
PROVIDERS: ADMIT Psychiatry & Neurology Psychiatry; ATTEND Psychiatry & Neurology Psychiatry
DX: F31.81 Bipolar II disorder (principal); R45.851 Suicidal ideations; J44.89 Other specified chronic obstructive pulmonary disease; F10.11 Alcohol abuse, in remission; R63.4 Abnormal weight loss; F17.210 Nicotine dependence, cigarettes, uncomplicated; F41.1 Generalized anxiety disorder; F43.10 Post-traumatic stress disorder, unspecified; H93.19 Tinnitus, unspecified ear; Z68.20 Body mass index [BMI] 20.0-20.9, adult; Z59.86 Financial insecurity; Z79.899 Other long term (current) drug therapy; Z11.52 Encounter for screening for COVID-19; Z87.01 Personal history of pneumonia (recurrent); Z63.0 Problems in relationship with spouse or partner
CPT/HCPCS: 80053; 80061; 80165; 80306; 81003; 82075; 83036; 84443; 85025; 87635; 99285